=== PATIENT | female | born 1980 | race Caucasian/White ===

== ENCOUNTER 2016-09-05 09:43 | Emergency (ER) | payer BC ==
[~2016-09-05] VITALS: Ht 162.6 cm; Wt 63.0 kg
[~2016-09-05 09:43] MED LIST: ENDOCET 5-3251 EACH PO; IBUPROFEN800 MG PO; IRON325 MG PO; Motrin PO; PRENATAL TABLE1 EAC3 PO
[2016-09-05 16:25] VITALS: BP 114/69
== END 2016-09-05 16:27 | disposition home or self-care (01) ==
LOC: EME 09:43
DX: R20.2 Paresthesia of skin (principal); R20.0 Anesthesia of skin; Z87.891 Personal history of nicotine dependence
CPT/HCPCS: 70551; 72141; 72146; 72148; 99281; 99283